=== PATIENT | male | born 1970 | race Caucasian/White ===

== ENCOUNTER → 2018-11-25 | Outpatient (CLI) | payer SELFPAY ==
[~2018-11-25] MED LIST: INSDET100 SUBQ; LISI5 PO; METF500 PO; PRAV20 PO; PRED20 PO
== END | disposition home or self-care (01) ==
LOC: LAB EV 08:00 → LAB SHORT 08:00
DX: K61.1 Rectal abscess (principal)
CPT/HCPCS: 87070; 87077; 87147; 87186; 87205

== ENCOUNTER → 2019-08-02 | Outpatient (CLI) | payer SELFPAY | END | disposition home or self-care (01) | LOC: LAB 17:29 → LAB SHORT 17:29 | DX: L08.9 Local infection of the skin and subcutaneous tissue, unspecified (principal) | CPT/HCPCS: 87102 ==

== ENCOUNTER → 2019-09-06 | Outpatient (CLI) | payer SELFPAY | END | disposition home or self-care (01) | LOC: LAB SHORT 19:04 → LAB 19:04 | DX: H60.392 Other infective otitis externa, left ear (principal); H92.12 Otorrhea, left ear | CPT/HCPCS: 87070; 87075; 87077; 87186; 87205 ==

== ENCOUNTER → 2020-04-25 | Outpatient (CLI) | payer SELFPAY | END | disposition home or self-care (01) | LOC: LAB 14:16 → LAB SHORT 14:16 | DX: L08.9 Local infection of the skin and subcutaneous tissue, unspecified (principal) | CPT/HCPCS: 87070; 87075; 87077; 87147; 87186; 87205 ==

== ENCOUNTER 2021-09-06 09:40 | Emergency (ER) | payer SELFPAY ==
[~2021-09-06] VITALS: Ht 180.3 cm; Wt 113.4 kg
[2021-09-06] MEDS ORDERED: Bactrim Ds Tab1 EACH PO (10:14)
== END 2021-09-06 10:17 | disposition home or self-care (01) ==
LOC: ER 09:40
DX: M70.22 Olecranon bursitis, left elbow (principal); E11.40 Type 2 diabetes mellitus with diabetic neuropathy, unspecified; I10 Essential (primary) hypertension; Z79.4 Long term (current) use of insulin; Z79.899 Other long term (current) drug therapy
CPT/HCPCS: 99283